=== PATIENT | male | born 1955 | race Caucasian/White ===

== ENCOUNTER 2018-09-25 20:06 | Inpatient (IN) | payer BC ==
[2018-09-25 21:19] LABS: ADD MAN DIFF? NO
[2018-09-25] MEDS: hydrALAzine 20 MG INJ IV (21:20)
[2018-09-25 21:21] LABS: ABNORMAL IP MESSAGE 1; BASOPHIL # 0.1 10^3/ul (0.0-0.1); BASOPHILS % 1.6 % (0.0-2.0); EOSINOPHILS # 0.1 10^3/ul (0.0-0.5); EOSINOPHILS % 1.6 % (0.0-7.0); HEMATOCRIT 49.9 % (42.0-52.0); HEMOGLOBIN 15.6 g/dl (14.0-18.0); MEAN CORPUSCULAR HEMOGLOBIN 24.7 pg (29.0-33.0); MEAN CORPUSCULAR HGB CONC 31.3 g/dl (32.0-37.0); MEAN PLATELET VOLUME 11.7 fl (7.4-10.4); MONOCYTE # 0.6 10^3/ul (0.3-0.9); MONOCYTES % 8.8 % (0.0-11.0); NEUTROPHILS % 72.7 % (39.0-77.0); PLATELET COUNT 222 10^3/UL (140-415); POSITIVE DIFF @See below; RED BLOOD COUNT 6.32 10^6/ul (4.70-6.10); RED CELL DISTRIBUTION WIDTH 16.6 % (11.5-14.5)
[2018-09-25 21:21] LABS: WHITE BLOOD COUNT 6.9 10^3/ul (4.8-10.8)
[2018-09-25 21:40] LABS: INR 0.91; PROTIME 12.4 Sec (11.9-14.9)
[2018-09-25 21:41] LABS: PARTIAL THROMBOPLASTIN TIME 30.9 Sec (23.0-35.0)
[2018-09-25 21:44] LABS: ALANINE AMINOTRANSFERASE 193 IU/L (13-69); ALBUMIN 2.7 g/dl (3.3-4.9); ALBUMIN/GLOBULIN RATIO 0.75; ALKALINE PHOSPHATASE 922 IU/L (42-121); ANION GAP 4 (5-13); ASPARTATE AMINO TRANSFERASE 248 IU/L (15-46); BILIRUBIN,INDIRECT 0.6 mg/dl (0-1.1); BILIRUBIN,TOTAL 0.7 mg/dl (0.2-1.3); BLOOD UREA NITROGEN 17 mg/dl (7-20); CALCIUM 8.9 mg/dl (8.4-10.2); CARBON DIOXIDE 29 mmol/L (21-31); CHLORIDE 101 mmol/L (97-110); Estimated GFR > 60 mL/min (>60); GLUCOSE 238 mg/dl (70-220); POTASSIUM 4.4 mmol/L (3.5-5.1); SODIUM 134 mmol/L (135-144); TOTAL PROTEIN 6.3 g/dl (6.1-8.1)
[2018-09-25 21:55] LABS: B-TYPE NATRIURETIC PEPTIDE 1800 PG/ML (0-125); TROPONIN-I < 0.012 ng/ml (0.000-0.120)
[2018-09-26] MEDS ORDERED: BISACODYL (EC) 5 MG TAB PO (01:00)
[2018-09-26] MEDS ORDERED: DOCUSATE SODIUM 100 MG CAP PO (01:00)
[2018-09-26] MEDS ORDERED: ONDANSETRON 4 MG INJ IV ×2 (01:00)
[2018-09-26] MEDS ORDERED: NACL 0.9% 3 ML SYG IV (01:00)
[2018-09-26] MEDS ORDERED: hydrALAzine 20 MG INJ IV (01:00)
[2018-09-26] MEDS: ONDANSETRON 4 MG INJ IV ×2 (01:15→13:27)
[2018-09-26 02:55] LABS: AMMONIA 55 umol/l (9-30)
[2018-09-26] MEDS: hydrALAzine 20 MG INJ IV ×2 (05:17→18:52)
[2018-09-26] MEDS: ACETAMINOPHEN 325 MG TAB PO ×2 (05:18→18:21)
[2018-09-26] MEDS: PANTOPRAZOLE 40 MG INJ IV (05:24)
[2018-09-26] MEDS: BENAZEPRIL 40 MG TAB PO (05:24)
[2018-09-26] MEDS: SOD CHLORIDE 0.9% 1,000 ML IV ×3 (05:28→22:30)
[2018-09-26 05:58] LABS: ADD MAN DIFF? NO; HAAIG REFLEX REFLEX FILED
[2018-09-26] MEDS ORDERED: GLUCOSE GEL 15 GRAM TUBE PO ×2 (06:30)
[2018-09-26] MEDS ORDERED: GLUCAGON 1 MG INJ IM (06:30)
[2018-09-26] MEDS ORDERED: DEXTROSE 50% 50 ML SYRINGE IV (06:30)
[2018-09-26 06:35] LABS: WHITE BLOOD COUNT 8.3 10^3/ul (4.8-10.8)
[2018-09-26 06:35] LABS: BASOPHIL # 0.2 10^3/ul (0.0-0.1); BASOPHILS % 1.8 % (0.0-2.0); EOSINOPHILS # 0.1 10^3/ul (0.0-0.5); EOSINOPHILS % 1.2 % (0.0-7.0); HEMATOCRIT 54.3 % (42.0-52.0); HEMOGLOBIN 16.8 g/dl (14.0-18.0); LYMPHOCYTES # 1.2 10^3/ul (0.8-2.9); LYMPHOCYTES % 14.4 % (15.0-51.0); MEAN CORPUSCULAR HEMOGLOBIN 24.8 pg (29.0-33.0); MEAN CORPUSCULAR HGB CONC 30.9 g/dl (32.0-37.0); MEAN CORPUSCULAR VOLUME 80.2 fl (82.0-101.0); MEAN PLATELET VOLUME 12.6 fl (7.4-10.4); MONOCYTE # 0.8 10^3/ul (0.3-0.9); MONOCYTES % 9.9 % (0.0-11.0); NEUTROPHIL # 5.9 10^3/ul (1.6-7.5); NEUTROPHILS % 71.5 % (39.0-77.0); PLATELET COUNT 233 10^3/UL (140-415); RED BLOOD COUNT 6.77 10^6/ul (4.70-6.10); RED CELL DISTRIBUTION WIDTH 18.1 % (11.5-14.5)
[2018-09-26] MEDS: DEXTROSE 5%-0.45% NACL 1,000 ML IV (06:57)
[2018-09-26 07:04] LABS: ALANINE AMINOTRANSFERASE 182 IU/L (13-69); ALBUMIN 2.8 g/dl (3.3-4.9); ALBUMIN/GLOBULIN RATIO 0.75; ALKALINE PHOSPHATASE 812 IU/L (42-121); ANION GAP 9 (5-13); ASPARTATE AMINO TRANSFERASE 256 IU/L (15-46); BILIRUBIN,INDIRECT 0.7 mg/dl (0-1.1); BILIRUBIN,TOTAL 0.7 mg/dl (0.2-1.3); BLOOD UREA NITROGEN 16 mg/dl (7-20); CARBON DIOXIDE 29 mmol/L (21-31); CHLORIDE 100 mmol/L (97-110); CREATININE 0.94 mg/dl (0.61-1.24); Estimated GFR > 60 mL/min (>60); GLUCOSE 107 mg/dl (70-220); POTASSIUM 4.5 mmol/L (3.5-5.1); SODIUM 138 mmol/L (135-144); TOTAL PROTEIN 6.5 g/dl (6.1-8.1)
[2018-09-26 07:12] LABS: MAGNESIUM 1.6 mg/dl (1.7-2.5)
[2018-09-26 07:12] LABS: CHOL/HDL RATIO 10.4 RATIO; CHOLESTEROL 272 mg/dl (100-200); HDL CHOLESTEROL 26 mg/dl (30-78); LDL CHOLESTEROL,CALCULATED 184 mg/dl; TRIGLYCERIDES 308 mg/dl (0-149)
[2018-09-26 07:18] LABS: HEMOGLOBIN A1C 11.5 % (0-5.9)
[2018-09-26 07:19] LABS: HEPATITIS B SURFACE ANTIGEN NEGATIVE (NEGATIVE)
[2018-09-26 07:36] LABS: HEPATITIS B CORE ANTIBODY REACTIVE (NEGATIVE)
[2018-09-26 07:37] LABS: HEPATITIS B SURFACE ANTIBODY NEGATIVE (NEGATIVE)
[2018-09-26 07:39] LABS: HEPATITIS C VIRAL ANTIBODY REACTIVE (NEGATIVE)
[2018-09-26] MEDS: AMLODIPINE 2.5 MG TAB PO (08:42)
[2018-09-26] MEDS: INSULIN ASPART [NOVOLOG] 3 ML PEN SC (08:43)
[2018-09-26 09:59] LABS: LIPASE 68 U/L (23-300)
[2018-09-26] MEDS: LACTULOSE 30ML CUP PO ×2 (10:24→20:47)
[2018-09-26 11:04] LABS: ADD UMIC YES; UR ASCORBIC ACID NEGATIVE (NEGATIVE); UR BILIRUBIN (Dip) NEGATIVE (NEGATIVE); UR BLOOD (Dip) NEGATIVE (NEGATIVE); UR CLARITY CLEAR (CLEAR); UR COLOR AMBER (YELLOW); UR GLUCOSE (Dip) 1+ mg/dL (NEGATIVE); UR HYALINE CAST FEW /HPF (NONE SEEN); UR KETONES (Dip) NEGATIVE (NEGATIVE); UR LEUKOCYTE ESTERASE (Dip) 1+ Leu/ul (NEGATIVE); UR NITRITE (Dip) NEGATIVE (NEGATIVE); UR NONSQUAMOUS EPITHELIAL CELL 1 /HPF (NONE SEEN); UR RBC 1 /HPF (0-5); UR SPECIFIC GRAVITY (Dip) 1.012 (1.003-1.030); UR TOTAL PROTEIN (Dip) 3+ mg/dl (NEGATIVE); UR UROBILINOGEN (Dip) 1+ mg/dL (NEGATIVE); UR WBC 13 /HPF (0-5)
[2018-09-26] MEDS ORDERED: INSULIN ASPART [NOVOLOG] 3 ML PEN SC (11:30)
[2018-09-26 11:42] LABS: AMPHETAMINE/METHAMPHETAMINE Negative (NEGATIVE); BARBITURATES Negative (NEGATIVE); BENZODIAZEPINES Negative (NEGATIVE); CANNABINOIDS Negative (NEGATIVE); COCAINE Negative (NEGATIVE); OPIATES Negative (NEGATIVE)
[2018-09-26] MEDS: MAGNESIUM SULFATE 2 GM/50 ML 50 ML IVPB (12:01)
[2018-09-26] MEDS: METOCLOPRAMIDE 10 MG INJ IV ×2 (12:01→18:02)
[2018-09-26] MEDS: Insulin NOVOLOG SS MILD Algorithm (SS with meals and bedtime) SC ×3 (12:12→20:49)
[2018-09-26] MEDS: BARIUM SULF 2% 450 ML BTL (BERRY SMOOTHIE) PO (13:21)
[2018-09-26] MEDS: IOHEXOL 350MG/ML 50 ML BTL (14:36)
[2018-09-26] MEDS: IOHEXOL 100 ML (14:36)
[2018-09-26] MEDS: SOD CHLORIDE 0.9% 100 ML (14:37)
[2018-09-26] MEDS: INSULIN GLARGINE [LANTus] (100 UNITS/ML) SYG SC (20:46)
[2018-09-26] MEDS: ATORVASTATIN 20 MG TAB PO (20:47)
[2018-09-27] MEDS: METOCLOPRAMIDE 10 MG INJ IV
[2018-09-27 05:13] LABS: ADD MAN DIFF? NO
[2018-09-27 05:17] LABS: BASOPHIL # 0.1 10^3/ul (0.0-0.1); BASOPHILS % 1.5 % (0.0-2.0); EOSINOPHILS # 0.1 10^3/ul (0.0-0.5); EOSINOPHILS % 1.1 % (0.0-7.0); HEMATOCRIT 50.1 % (42.0-52.0); HEMOGLOBIN 15.6 g/dl (14.0-18.0); LYMPHOCYTES % 13.6 % (15.0-51.0); MEAN CORPUSCULAR HEMOGLOBIN 24.4 pg (29.0-33.0); MEAN CORPUSCULAR HGB CONC 31.1 g/dl (32.0-37.0); MEAN CORPUSCULAR VOLUME 78.3 fl (82.0-101.0); MONOCYTE # 0.9 10^3/ul (0.3-0.9); MONOCYTES % 11.4 % (0.0-11.0); NEUTROPHIL # 5.4 10^3/ul (1.6-7.5); NEUTROPHILS % 71.3 % (39.0-77.0); PLATELET COUNT 285 10^3/UL (140-415); RED CELL DISTRIBUTION WIDTH 17.5 % (11.5-14.5)
[2018-09-27 05:17] LABS: WHITE BLOOD COUNT 7.6 10^3/ul (4.8-10.8)
[2018-09-27] MEDS: PANTOPRAZOLE 40 MG INJ IV (05:27)
[2018-09-27 05:36] LABS: ALANINE AMINOTRANSFERASE 170 IU/L (13-69); ALBUMIN 2.6 g/dl (3.3-4.9); ALBUMIN/GLOBULIN RATIO 0.74; ALKALINE PHOSPHATASE 666 IU/L (42-121); ANION GAP 7 (5-13); ASPARTATE AMINO TRANSFERASE 239 IU/L (15-46); BILIRUBIN,INDIRECT 0.5 mg/dl (0-1.1); BILIRUBIN,TOTAL 0.6 mg/dl (0.2-1.3); BLOOD UREA NITROGEN 20 mg/dl (7-20); CALCIUM 8.6 mg/dl (8.4-10.2); CARBON DIOXIDE 27 mmol/L (21-31); CHLORIDE 103 mmol/L (97-110); CREATININE 1.28 mg/dl (0.61-1.24); Estimated GFR 57 mL/min (>60); GLUCOSE 68 mg/dl (70-220); POTASSIUM 4.2 mmol/L (3.5-5.1); SODIUM 137 mmol/L (135-144); TOTAL PROTEIN 6.1 g/dl (6.1-8.1)
[2018-09-27] MEDS ORDERED: PROPOFOL 200 MG INJ (07:00)
[2018-09-27] MEDS: Insulin NOVOLOG SS MILD Algorithm (SS with meals and bedtime) SC ×4 (07:20→20:20)
[2018-09-27] MEDS: LACTULOSE 30ML CUP PO ×2 (09:00→20:22)
[2018-09-27] MEDS: DEXTROSE 50% 50 ML SYRINGE IV (09:31)
[2018-09-27] MEDS: BENAZEPRIL 40 MG TAB PO (09:44)
[2018-09-27] MEDS: AMLODIPINE 2.5 MG TAB PO (09:45)
[2018-09-27] MEDS: SOD CHLORIDE 0.9% 1,000 ML IV ×2 (11:00→16:29)
[2018-09-27] MEDS: METOPROLOL 25 MG TAB PO ×2 (11:30→20:20)
[2018-09-27] MEDS: DEXTROSE 5%-0.45% NACL 1,000 ML IV (12:19)
[2018-09-27] MEDS: hydrALAzine 20 MG INJ IV ×2 (12:52→15:26)
[2018-09-27] MEDS: PROPOFOL 40 ML (14:27)
[2018-09-27] MEDS: LIDOCAINE 2% (SDV) 5 ML INJ (14:27)
[2018-09-27] MEDS ORDERED: FENTAnyl 50 MCG/ML VIAL IV (14:30)
[2018-09-27] MEDS ORDERED: ACETAMINOPHEN 500 MG TAB PO (14:30)
[2018-09-27] MEDS ORDERED: ALBUTEROL 0.083% (NEB) 2.5 MG/3 ML AMP HHN (14:30)
[2018-09-27] MEDS ORDERED: DIPHENHYDRAMINE 50 MG INJ IV (14:30)
[2018-09-27] MEDS ORDERED: ONDANSETRON 4 MG INJ IV (14:30)
[2018-09-27] MEDS ORDERED: LABETALOL HCL 20MG INJ IV (14:30)
[2018-09-27] MEDS: ONDANSETRON 4 MG INJ IV (15:26)
[2018-09-27] MEDS: GLUCOSE GEL 15 GRAM TUBE BUCCAL (15:39)
[2018-09-27] MEDS: AMLODIPINE 5 MG TAB PO (16:28)
[2018-09-27 17:46] LABS: SODIUM,URINE RANDOM 68 mmol/L (30-90)
[2018-09-27 17:46] LABS: CREATININE,URINE RANDOM 127.07 mg/dl (20-370)
[2018-09-27 17:50] LABS: CREATININE,URINE RANDOM 129.25 mg/dl (20-370)
[2018-09-27 17:54] LABS: PROTEIN/CREAT RATIO 2.56 RATIO
[2018-09-27] MEDS: ACETAMINOPHEN 325 MG TAB PO (18:46)
[2018-09-27] MEDS: ATORVASTATIN 20 MG TAB PO (20:20)
[2018-09-27] MEDS: INSULIN GLARGINE [LANTus] (100 UNITS/ML) SYG SC (20:28)
[2018-09-28] MEDS: SOD CHLORIDE 0.9% 1,000 ML IV (01:20)
[2018-09-28] MEDS: hydrALAzine 20 MG INJ IV ×3 (02:58→23:52)
[2018-09-28 05:11] LABS: ADD MAN DIFF? NO
[2018-09-28 05:30] LABS: BASOPHIL # 0.1 10^3/ul (0.0-0.1); BASOPHILS % 1.2 % (0.0-2.0); EOSINOPHILS # 0.1 10^3/ul (0.0-0.5); EOSINOPHILS % 1.4 % (0.0-7.0); HEMATOCRIT 48.5 % (42.0-52.0); HEMOGLOBIN 14.9 g/dl (14.0-18.0); LYMPHOCYTES # 0.7 10^3/ul (0.8-2.9); LYMPHOCYTES % 12.6 % (15.0-51.0); MEAN CORPUSCULAR HEMOGLOBIN 24.3 pg (29.0-33.0); MEAN CORPUSCULAR HGB CONC 30.7 g/dl (32.0-37.0); MEAN PLATELET VOLUME 11.5 fl (7.4-10.4); MONOCYTE # 0.9 10^3/ul (0.3-0.9); MONOCYTES % 15.3 % (0.0-11.0); NEUTROPHIL # 4.1 10^3/ul (1.6-7.5); PLATELET COUNT 270 10^3/UL (140-415); RED BLOOD COUNT 6.14 10^6/ul (4.70-6.10); RED CELL DISTRIBUTION WIDTH 17.3 % (11.5-14.5)
[2018-09-28 05:30] LABS: WHITE BLOOD COUNT 5.9 10^3/ul (4.8-10.8)
[2018-09-28 05:49] LABS: ALANINE AMINOTRANSFERASE 170 IU/L (13-69); ALBUMIN 2.3 g/dl (3.3-4.9); ALBUMIN/GLOBULIN RATIO 0.71; ALKALINE PHOSPHATASE 536 IU/L (42-121); ANION GAP 8 (5-13); ASPARTATE AMINO TRANSFERASE 277 IU/L (15-46); BILIRUBIN,INDIRECT 0.6 mg/dl (0-1.1); BILIRUBIN,TOTAL 0.9 mg/dl (0.2-1.3); BLOOD UREA NITROGEN 23 mg/dl (7-20); CALCIUM 8.5 mg/dl (8.4-10.2); CARBON DIOXIDE 25 mmol/L (21-31); CHLORIDE 105 mmol/L (97-110); CREATININE 1.16 mg/dl (0.61-1.24); Estimated GFR > 60 mL/min (>60); POTASSIUM 4.4 mmol/L (3.5-5.1); SODIUM 138 mmol/L (135-144); TOTAL PROTEIN 5.5 g/dl (6.1-8.1)
[2018-09-28 06:04] LABS: AMMONIA 50 umol/l (9-30)
[2018-09-28] MEDS: PANTOPRAZOLE 40 MG INJ IV (06:39)
[2018-09-28] MEDS: AMLODIPINE 10 MG TAB PO (08:21)
[2018-09-28] MEDS: METOPROLOL 25 MG TAB PO ×2 (08:21→20:13)
[2018-09-28] MEDS: LACTULOSE 30ML CUP PO ×3 (08:22→20:05)
[2018-09-28] MEDS: Insulin NOVOLOG SS MILD Algorithm (SS with meals and bedtime) SC ×4 (08:37→20:05)
[2018-09-28] MEDS: SOD CHLORIDE 0.9% 100 ML (13:42)
[2018-09-28] MEDS: IODIXANOL LOCM 100 ML BTL (13:43)
[2018-09-28] MEDS: ONDANSETRON 4 MG INJ IV ×2 (17:43→23:39)
[2018-09-28] MEDS: ATORVASTATIN 20 MG TAB PO (20:16)
[2018-09-28] MEDS: NIFEdipine (XL) 30 MG TAB PO (20:18)
[2018-09-29] MEDS: ACETAMINOPHEN 325 MG TAB PO ×2 (03:15→09:54)
[2018-09-29 05:24] LABS: ADD MAN DIFF? NO
[2018-09-29 05:32] LABS: WHITE BLOOD COUNT 19.6 10^3/ul (4.8-10.8)
[2018-09-29 05:32] LABS: ABNORMAL IP MESSAGE 1; BASOPHILS % 0.2 % (0.0-2.0); HEMATOCRIT 47.6 % (42.0-52.0); HEMOGLOBIN 15.1 g/dl (14.0-18.0); LYMPHOCYTES # 0.3 10^3/ul (0.8-2.9); LYMPHOCYTES % 1.7 % (15.0-51.0); MEAN CORPUSCULAR HEMOGLOBIN 24.5 pg (29.0-33.0); MEAN CORPUSCULAR HGB CONC 31.7 g/dl (32.0-37.0); MEAN CORPUSCULAR VOLUME 77.3 fl (82.0-101.0); MEAN PLATELET VOLUME 12.3 fl (7.4-10.4); MONOCYTE # 1.3 10^3/ul (0.3-0.9); MONOCYTES % 6.5 % (0.0-11.0); NEUTROPHIL # 17.8 10^3/ul (1.6-7.5); PLATELET COUNT 286 10^3/UL (140-415); POSITIVE DIFF @See below; RED BLOOD COUNT 6.16 10^6/ul (4.70-6.10); RED CELL DISTRIBUTION WIDTH 17.6 % (11.5-14.5)
[2018-09-29 05:54] LABS: ALANINE AMINOTRANSFERASE 153 IU/L (13-69); ALBUMIN 2.5 g/dl (3.3-4.9); ALBUMIN/GLOBULIN RATIO 0.73; ALKALINE PHOSPHATASE 518 IU/L (42-121); ANION GAP 15 (5-13); ASPARTATE AMINO TRANSFERASE 228 IU/L (15-46); BILIRUBIN,INDIRECT 0.7 mg/dl (0-1.1); BILIRUBIN,TOTAL 0.9 mg/dl (0.2-1.3); BLOOD UREA NITROGEN 27 mg/dl (7-20); CALCIUM 8.6 mg/dl (8.4-10.2); CARBON DIOXIDE 21 mmol/L (21-31); CHLORIDE 102 mmol/L (97-110); CREATININE 1.41 mg/dl (0.61-1.24); Estimated GFR 51 mL/min (>60); GLUCOSE 127 mg/dl (70-220); POTASSIUM 4.1 mmol/L (3.5-5.1); SODIUM 138 mmol/L (135-144); TOTAL PROTEIN 5.9 g/dl (6.1-8.1)
[2018-09-29 06:56] LABS: GLUCOSE 50 mg/dl (70-220)
[2018-09-29] MEDS: METOPROLOL 25 MG TAB PO (08:53)
[2018-09-29] MEDS: FAMOTIDINE 20 MG INJ IV (08:53)
[2018-09-29] MEDS: NIFEdipine (XL) 30 MG TAB PO (08:54)
[2018-09-29] MEDS: Insulin NOVOLOG SS MILD Algorithm (SS with meals and bedtime) SC ×3 (08:58→18:12)
[2018-09-29] MEDS: LACTULOSE 30ML CUP PO (09:17)
[2018-09-29 10:49] LABS: INR 0.98; PROTIME 13.1 Sec (11.9-14.9)
[2018-09-29] MEDS: ERTAPENEM SODIUM 1 GM in SOD CHLORIDE 0.9% 100 ML IVPB (13:21)
== END 2018-09-29 19:15 | disposition short-term general hospital (02) | DRG 304 ==
LOC: E/R 20:06 → 6WM 09-26 00:43 → MS1 09-26 13:09
PROC: 0DB58ZX Excision of Esophagus, Via Natural or Artificial Opening Endoscopic, Diagnostic (ICD-10-PCS; principal; 2018-09-27 13:50)
DX: I16.0 Hypertensive urgency (principal); N17.0 Acute kidney failure with tubular necrosis; I81 Portal vein thrombosis; E72.20 Disorder of urea cycle metabolism, unspecified; R18.8 Other ascites; K76.6 Portal hypertension; C22.0 Liver cell carcinoma; I10 Essential (primary) hypertension; E78.5 Hyperlipidemia, unspecified; E11.8 Type 2 diabetes mellitus with unspecified complications; K74.60 Unspecified cirrhosis of liver; E83.42 Hypomagnesemia; B19.20 Unspecified viral hepatitis C without hepatic coma; R16.0 Hepatomegaly, not elsewhere classified; K76.0 Fatty (change of) liver, not elsewhere classified; K20.9 Esophagitis, unspecified; K29.70 Gastritis, unspecified, without bleeding; N99.0 Postprocedural (acute) (chronic) kidney failure; R51 Headache; K20.8 Other esophagitis; K74.69 Other cirrhosis of liver
CPT/HCPCS: 36415; 70450; 71045; 71260; 74176; 74177; 74181; 76705; 80053; 80061; 80307; 81001; 81003; 82105; 82140; 82570; 82962; 83036; 83690; 83735; 83880; 84155; 84300; 84443; 84484; 85025; 85610; 85730; 86704; 86706; 86708; 86709; 86803; 87086; 87340; 88305; 88312; 88313; 89190; 93005; 93306; 96374; 99285-25

== ENCOUNTER 2018-10-06 12:28 | Inpatient (IN) | payer BC ==
[2018-10-06 15:08] LABS: ADD MAN DIFF? NO
[2018-10-06] MEDS: FUROSEMIDE 40 MG INJ IV (15:09)
[2018-10-06 15:10] LABS: WHITE BLOOD COUNT 6.8 10^3/ul (4.8-10.8)
[2018-10-06 15:10] LABS: BASOPHIL # 0.2 10^3/ul (0.0-0.1); BASOPHILS % 2.4 % (0.0-2.0); EOSINOPHILS # 0.2 10^3/ul (0.0-0.5); EOSINOPHILS % 2.7 % (0.0-7.0); HEMATOCRIT 45.4 % (42.0-52.0); HEMOGLOBIN 14.1 g/dl (14.0-18.0); LYMPHOCYTES # 0.9 10^3/ul (0.8-2.9); LYMPHOCYTES % 13.4 % (15.0-51.0); MEAN CORPUSCULAR HGB CONC 31.1 g/dl (32.0-37.0); MEAN CORPUSCULAR VOLUME 77.3 fl (82.0-101.0); MEAN PLATELET VOLUME 10.6 fl (7.4-10.4); MONOCYTE # 0.8 10^3/ul (0.3-0.9); MONOCYTES % 11.5 % (0.0-11.0); NEUTROPHIL # 4.5 10^3/ul (1.6-7.5); NEUTROPHILS % 66.3 % (39.0-77.0); PLATELET COUNT 275 10^3/UL (140-415); RED BLOOD COUNT 5.87 10^6/ul (4.70-6.10); RED CELL DISTRIBUTION WIDTH 17.5 % (11.5-14.5)
[2018-10-06 15:27] LABS: ALANINE AMINOTRANSFERASE 233 IU/L (13-69); ALBUMIN 2.5 g/dl (3.3-4.9); ALBUMIN/GLOBULIN RATIO 0.69; ALKALINE PHOSPHATASE 1323 IU/L (42-121); ANION GAP 3 (5-13); ASPARTATE AMINO TRANSFERASE 416 IU/L (15-46); BILIRUBIN,INDIRECT 0.6 mg/dl (0-1.1); BILIRUBIN,TOTAL 0.6 mg/dl (0.2-1.3); BLOOD UREA NITROGEN 18 mg/dl (7-20); CALCIUM 8.5 mg/dl (8.4-10.2); CARBON DIOXIDE 26 mmol/L (21-31); CHLORIDE 107 mmol/L (97-110); Estimated GFR > 60 mL/min (>60); GLUCOSE 242 mg/dl (70-220); POTASSIUM 4.9 mmol/L (3.5-5.1); SODIUM 136 mmol/L (135-144); TOTAL PROTEIN 6.1 g/dl (6.1-8.1)
[2018-10-06 15:31] LABS: PROTIME 13.3 Sec (11.9-14.9)
[2018-10-06 15:32] LABS: PARTIAL THROMBOPLASTIN TIME 33.3 Sec (23.0-35.0)
[2018-10-06 15:39] LABS: TROPONIN-I < 0.012 ng/ml (0.000-0.120)
[2018-10-06] MEDS ORDERED: ONDANSETRON 4 MG INJ IV (16:30)
[2018-10-06] MEDS ORDERED: ACETAMINOPHEN 325 MG TAB PO ×2 (16:30→17:00)
[2018-10-06] MEDS ORDERED: NACL 0.9% 3 ML SYG IV (17:00)
[2018-10-06] MEDS: INSULIN ASPART [NOVOLOG] 3 ML PEN SC ×3 (18:00→20:44)
[2018-10-06] MEDS ORDERED: FUROSEMIDE 40 MG INJ IV (18:00)
[2018-10-06 18:11] LABS: B-TYPE NATRIURETIC PEPTIDE 1220 PG/ML (0-125)
[2018-10-06] MEDS: PANTOPRAZOLE (EC) 40 MG TAB PO (20:04)
[2018-10-06] MEDS: AMOXICILLIN 500 MG CAP PO (20:04)
[2018-10-06] MEDS: INSULIN GLARGINE [LANTus] (100 UNITS/ML) SYG SC (20:43)
[2018-10-06] MEDS: PROPRANOLOL 40 MG TAB PO (21:00)
[2018-10-06] MEDS: hydrALAzine 20 MG INJ IV (21:39)
[2018-10-06 21:45] LABS: CREATINE KINASE 45 IU/L (23-200)
[2018-10-06 21:56] LABS: CK INDEX 1.2; CK-MB 0.55 ng/ml (0.0-2.4); TROPONIN-I < 0.012 ng/ml (0.000-0.120)
[2018-10-06] MEDS: CLARITHROMYCIN 500 MG TAB PO (23:25)
[2018-10-07] MEDS: hydrALAzine 20 MG INJ IV (02:44)
[2018-10-07 03:33] LABS: CREATINE KINASE 38 IU/L (23-200)
[2018-10-07 03:46] LABS: CK-MB 0.39 ng/ml (0.0-2.4); TROPONIN-I < 0.012 ng/ml (0.000-0.120)
[2018-10-07] MEDS: PANTOPRAZOLE (EC) 40 MG TAB PO ×2 (06:05→18:17)
[2018-10-07] MEDS: INSULIN ASPART [NOVOLOG] 3 ML PEN SC ×7 (07:49→20:16)
[2018-10-07] MEDS: SPIRONOLACTONE 50 MG TAB PO (08:11)
[2018-10-07] MEDS: AMOXICILLIN 500 MG CAP PO ×2 (08:11→20:09)
[2018-10-07] MEDS: FUROSEMIDE 40 MG INJ IV (08:11)
[2018-10-07] MEDS: CLARITHROMYCIN 500 MG TAB PO ×2 (09:44→20:09)
[2018-10-07] MEDS: PROPRANOLOL 40 MG TAB PO ×3 (09:44→20:09)
[2018-10-07 10:33] LABS: ADD MAN DIFF? NO
[2018-10-07 10:45] LABS: WHITE BLOOD COUNT 6.7 10^3/ul (4.8-10.8)
[2018-10-07 10:45] LABS: BASOPHIL # 0.2 10^3/ul (0.0-0.1); BASOPHILS % 2.2 % (0.0-2.0); EOSINOPHILS # 0.1 10^3/ul (0.0-0.5); EOSINOPHILS % 1.5 % (0.0-7.0); HEMATOCRIT 43.1 % (42.0-52.0); HEMOGLOBIN 13.7 g/dl (14.0-18.0); LYMPHOCYTES # 0.6 10^3/ul (0.8-2.9); LYMPHOCYTES % 9.4 % (15.0-51.0); MEAN CORPUSCULAR HGB CONC 31.8 g/dl (32.0-37.0); MEAN CORPUSCULAR VOLUME 75.6 fl (82.0-101.0); MEAN PLATELET VOLUME 10.6 fl (7.4-10.4); MONOCYTE # 0.6 10^3/ul (0.3-0.9); MONOCYTES % 9.1 % (0.0-11.0); NEUTROPHILS % 74.5 % (39.0-77.0); PLATELET COUNT 268 10^3/UL (140-415); RED CELL DISTRIBUTION WIDTH 17.7 % (11.5-14.5)
[2018-10-07 10:51] LABS: ALANINE AMINOTRANSFERASE 219 IU/L (13-69); ALBUMIN 2.4 g/dl (3.3-4.9); ALBUMIN/GLOBULIN RATIO 0.68; ALKALINE PHOSPHATASE 1034 IU/L (42-121); ANION GAP 5 (5-13); ASPARTATE AMINO TRANSFERASE 416 IU/L (15-46); BILIRUBIN,INDIRECT 0.5 mg/dl (0-1.1); BILIRUBIN,TOTAL 0.9 mg/dl (0.2-1.3); BLOOD UREA NITROGEN 20 mg/dl (7-20); CALCIUM 8.5 mg/dl (8.4-10.2); CARBON DIOXIDE 28 mmol/L (21-31); CHLORIDE 102 mmol/L (97-110); CREATININE 1.14 mg/dl (0.61-1.24); Estimated GFR > 60 mL/min (>60); GLUCOSE 206 mg/dl (70-220); MAGNESIUM 1.6 mg/dl (1.7-2.5); POTASSIUM 4.6 mmol/L (3.5-5.1); SODIUM 135 mmol/L (135-144); TOTAL PROTEIN 5.9 g/dl (6.1-8.1)
[2018-10-07] MEDS ORDERED: GLUCOSE GEL 15 GRAM TUBE BUCCAL (16:30)
[2018-10-07] MEDS ORDERED: GLUCOSE GEL 15 GRAM TUBE PO ×2 (16:30)
[2018-10-07] MEDS ORDERED: GLUCAGON 1 MG INJ IM (16:30)
[2018-10-07] MEDS ORDERED: DEXTROSE 50% 50 ML SYRINGE IV ×2 (16:30)
[2018-10-07] MEDS: INSULIN GLARGINE [LANTus] (100 UNITS/ML) SYG SC (20:16)
[2018-10-08 05:48] LABS: ADD MAN DIFF? NO
[2018-10-08] MEDS: PANTOPRAZOLE (EC) 40 MG TAB PO (05:52)
[2018-10-08 05:54] LABS: WHITE BLOOD COUNT 7.7 10^3/ul (4.8-10.8)
[2018-10-08 05:54] LABS: BASOPHIL # 0.2 10^3/ul (0.0-0.1); BASOPHILS % 2.5 % (0.0-2.0); EOSINOPHILS # 0.2 10^3/ul (0.0-0.5); EOSINOPHILS % 3.1 % (0.0-7.0); HEMATOCRIT 45.5 % (42.0-52.0); HEMOGLOBIN 14.7 g/dl (14.0-18.0); LYMPHOCYTES # 1.2 10^3/ul (0.8-2.9); MEAN CORPUSCULAR HEMOGLOBIN 24.1 pg (29.0-33.0); MEAN CORPUSCULAR HGB CONC 32.3 g/dl (32.0-37.0); MEAN CORPUSCULAR VOLUME 74.6 fl (82.0-101.0); MEAN PLATELET VOLUME 10.9 fl (7.4-10.4); MONOCYTE # 0.7 10^3/ul (0.3-0.9); MONOCYTES % 8.7 % (0.0-11.0); NEUTROPHIL # 5.1 10^3/ul (1.6-7.5); NEUTROPHILS % 66.3 % (39.0-77.0); PLATELET COUNT 295 10^3/UL (140-415); RED CELL DISTRIBUTION WIDTH 18.2 % (11.5-14.5)
[2018-10-08 06:14] LABS: MAGNESIUM 1.7 mg/dl (1.7-2.5); PROTIME 13.3 Sec (11.9-14.9)
[2018-10-08 06:14] LABS: PHOSPHORUS 4.1 mg/dl (2.5-4.9)
[2018-10-08 06:15] LABS: PARTIAL THROMBOPLASTIN TIME 32.2 Sec (23.0-35.0)
[2018-10-08 06:22] LABS: ALANINE AMINOTRANSFERASE 238 IU/L (13-69); ALBUMIN 2.6 g/dl (3.3-4.9); ALKALINE PHOSPHATASE 1164 IU/L (42-121); ANION GAP 6 (5-13); ASPARTATE AMINO TRANSFERASE 492 IU/L (15-46); BILIRUBIN,INDIRECT 0.7 mg/dl (0-1.1); BILIRUBIN,TOTAL 1.1 mg/dl (0.2-1.3); BLOOD UREA NITROGEN 22 mg/dl (7-20); CALCIUM 8.6 mg/dl (8.4-10.2); CARBON DIOXIDE 28 mmol/L (21-31); CHLORIDE 103 mmol/L (97-110); CREATININE 1.31 mg/dl (0.61-1.24); Estimated GFR 55 mL/min (>60); GLUCOSE 97 mg/dl (70-220); POTASSIUM 4.5 mmol/L (3.5-5.1); SODIUM 137 mmol/L (135-144); TOTAL PROTEIN 6.3 g/dl (6.1-8.1)
[2018-10-08] MEDS: INSULIN ASPART [NOVOLOG] 3 ML PEN SC ×4 (08:00→11:21)
[2018-10-08] MEDS: AMOXICILLIN 500 MG CAP PO (08:07)
[2018-10-08] MEDS: CLARITHROMYCIN 500 MG TAB PO (08:07)
[2018-10-08] MEDS: SPIRONOLACTONE 50 MG TAB PO (08:08)
[2018-10-08] MEDS: FUROSEMIDE 40 MG INJ IV (08:08)
[2018-10-08] MEDS: PROPRANOLOL 40 MG TAB PO ×2 (08:08→12:44)
[2018-10-08] MEDS: traMADol 50 MG TAB PO (11:15)
[2018-10-08] MEDS: ONDANSETRON 4 MG INJ IV (11:53)
[2018-10-08] MEDS: hydrALAzine 20 MG INJ IV ×2 (12:45→12:47)
== END 2018-10-08 16:20 | disposition home or self-care (01) | DRG 292 ==
LOC: E/R 12:28 → 6WM 16:58
DX: I11.0 Hypertensive heart disease with heart failure (principal); K76.6 Portal hypertension; R18.8 Other ascites; C22.7 Other specified carcinomas of liver; I50.33 Acute on chronic diastolic (congestive) heart failure; I16.0 Hypertensive urgency; K74.60 Unspecified cirrhosis of liver; K20.9 Esophagitis, unspecified; E11.9 Type 2 diabetes mellitus without complications; R16.0 Hepatomegaly, not elsewhere classified
CPT/HCPCS: 36415; 71045; 80053; 82550; 82553; 82962; 83735; 83880; 84100; 84484; 85025; 85610; 85730; 87081; 93005; 93970; 96374; 99285-25

== ENCOUNTER 2018-11-29 13:26 | Inpatient (IN) | payer BC ==
[2018-11-29 13:55] LABS: ADD MAN DIFF? NO
[2018-11-29 13:59] LABS: ABNORMAL IP MESSAGE 1; BASOPHILS % 0.2 % (0.0-2.0); EOSINOPHILS # 0.1 10^3/ul (0.0-0.5); EOSINOPHILS % 0.3 % (0.0-7.0); HEMATOCRIT 55.7 % (42.0-52.0); HEMOGLOBIN 18.5 g/dl (14.0-18.0); LYMPHOCYTES # 2.2 10^3/ul (0.8-2.9); LYMPHOCYTES % 13.4 % (15.0-51.0); MEAN CORPUSCULAR HEMOGLOBIN 26.5 pg (29.0-33.0); MEAN CORPUSCULAR HGB CONC 33.2 g/dl (32.0-37.0); MEAN CORPUSCULAR VOLUME 79.9 fl (82.0-101.0); MONOCYTE # 0.4 10^3/ul (0.3-0.9); MONOCYTES % 2.4 % (0.0-11.0); NEUTROPHIL # 13.4 10^3/ul (1.6-7.5); NEUTROPHILS % 83.3 % (39.0-77.0); PLATELET COUNT 271 10^3/UL (140-415); POSITIVE DIFF @See below; RED BLOOD COUNT 6.97 10^6/ul (4.70-6.10); RED CELL DISTRIBUTION WIDTH 24.7 % (11.5-14.5)
[2018-11-29 13:59] LABS: WHITE BLOOD COUNT 16.1 10^3/ul (4.8-10.8)
[2018-11-29 14:15] LABS: AMMONIA 158 umol/l (9-30)
[2018-11-29 14:21] LABS: PROTIME 14.3 Sec (11.9-14.9); PT RATIO 1.1
[2018-11-29 14:22] LABS: PARTIAL THROMBOPLASTIN TIME 34.3 Sec (23.0-35.0)
[2018-11-29] MEDS: SODIUM CHLORIDE 0.9% 1L BAG IV* (14:29)
[2018-11-29 14:34] LABS: ALANINE AMINOTRANSFERASE 114 IU/L (13-69); ALBUMIN 3.7 g/dl (3.3-4.9); ALBUMIN/GLOBULIN RATIO 0.77; ALKALINE PHOSPHATASE 505 IU/L (42-121); ANION GAP 11 (5-13); ASPARTATE AMINO TRANSFERASE 105 IU/L (15-46); BILIRUBIN,INDIRECT 1.4 mg/dl (0-1.1); BILIRUBIN,TOTAL 1.4 mg/dl (0.2-1.3); BLOOD UREA NITROGEN 54 mg/dl (7-20); CALCIUM 9.8 mg/dl (8.4-10.2); CARBON DIOXIDE 26 mmol/L (21-31); CHLORIDE 100 mmol/L (97-110); CREATININE 1.45 mg/dl (0.61-1.24); Estimated GFR 49 mL/min (>60); POTASSIUM 5.6 mmol/L (3.5-5.1); SODIUM 137 mmol/L (135-144); TOTAL PROTEIN 8.5 g/dl (6.1-8.1)
[2018-11-29 14:36] LABS: ANISOCYTOSIS 1+ (0-0); BAND NEUTROPHILS #M 1.4 10^3/ul (0.0-0.6); BAND NEUTROPHILS % (M) 9 % (0-4); BASOPHIL #M 0.1 10^3/ul (0.0-0.0); BASOPHILS % (M) 1 % (0-2); LYMPHOCYTES #M 1.9 10^3/ul (0.8-2.9); LYMPHOCYTES % (M) 12 % (15-51); MICROCYTOSIS 1+ (0-0); MONOCYTE #M 0.3 10^3/ul (0.3-0.9); MONOCYTES % (M) 2 % (0-11); PLATELET ESTIMATE NORMAL; POIKILOCYTOSIS 1+ (0-0); RBC MORPHOLOGY COMMENT @See below; REACTIVE LYMPHOCYTES #M 0.1 10^3/ul (0.0-0.0); REACTIVE LYMPHOCYTES% (M) 1 % (0-0); SEG NEUT #M 12.3 10^3/ul (1.6-7.5); SEGMENTED NEUTROPHILS (M) % 75 % (39-77); SMUDGE%M 27 % (0-0); WBC MORPHOLOGY COMMENT @See below
[2018-11-29 14:37] LABS: ACETAMINOPHEN < 10.0 ug/ml (10.0-30.0)
[2018-11-29 14:40] LABS: GLUCOSE 509 mg/dl (70-220)
[2018-11-29] MEDS: CEFEPIME 2GM/50 ML (PMX) 50 ML IVPB (14:42)
[2018-11-29] MEDS: INSULIN ASPART [NOVOLOG] 3 ML PEN SC (15:10)
[2018-11-29] MEDS: ACCU-CHEK XX ×9 (15:10→23:05)
[2018-11-29] MEDS: VANCOMYCIN 1 GM (PMX) 250 ML IVPB (15:12)
[2018-11-29] MEDS: LACTULOSE ENEMA 1,000 ML BTL PR ×2 (15:27→20:25)
[2018-11-29 15:29] LABS: ADD UMIC YES; UR ASCORBIC ACID 20 mg/dL (NEGATIVE); UR BACTERIA FEW /HPF (NONE SEEN); UR BILIRUBIN (Dip) NEGATIVE (NEGATIVE); UR BLOOD (Dip) NEGATIVE (NEGATIVE); UR CLARITY SLIGHTLY CLOUDY (CLEAR); UR COLOR AMBER (YELLOW); UR GLUCOSE (Dip) 3+ mg/dL (NEGATIVE); UR HYALINE CAST FEW /HPF (NONE SEEN); UR KETONES (Dip) TRACE mg/dL (NEGATIVE); UR LEUKOCYTE ESTERASE (Dip) NEGATIVE Leu/ul (NEGATIVE); UR NITRITE (Dip) NEGATIVE (NEGATIVE); UR RBC 1 /HPF (0-5); UR SPECIFIC GRAVITY (Dip) 1.023 (1.003-1.030); UR TOTAL PROTEIN (Dip) 2+ mg/dl (NEGATIVE); UR UROBILINOGEN (Dip) NEGATIVE (NEGATIVE); UR WBC 2 /HPF (0-5)
[2018-11-29] MEDS ORDERED: NACL 0.9% 3 ML SYG IV (16:00)
[2018-11-29] MEDS ORDERED: INSULIN REGULAR, HUMAN 100 UNIT/1 ML 3ML VIAL IVP (16:02)
[2018-11-29] MEDS ORDERED: DEXTROSE 50% 50 ML SYRINGE IV ×2 (16:30)
[2018-11-29] MEDS ORDERED: VANCOMYCIN IV PER PHARMACY XX (16:30)
[2018-11-29 16:36] LABS: AMPHETAMINE/METHAMPHETAMINE NEGATIVE (NEGATIVE); BARBITURATES NEGATIVE (NEGATIVE); BENZODIAZEPINES NEGATIVE (NEGATIVE); CANNABINOIDS NEGATIVE (NEGATIVE); COCAINE NEGATIVE (NEGATIVE); OPIATES NEGATIVE (NEGATIVE)
[2018-11-29 16:46] LABS: LACTIC ACID 3.8 mmol/L (0.5-2.0)
[2018-11-29 16:56] LABS: HDL CHOLESTEROL 40 mg/dl (30-78); TRIGLYCERIDES 201 mg/dl (0-149)
[2018-11-29] MEDS: INSULIN HUMAN REGULAR 100 UNIT in SOD CHLORIDE 0.9% 99 ML IV (17:11)
[2018-11-29 17:15] LABS: CHOLESTEROL 434 mg/dl (100-200)
[2018-11-29 17:15] LABS: CHOL/HDL RATIO 10.8 RATIO; LDL CHOLESTEROL,CALCULATED 354 mg/dl
[2018-11-29 18:30] LABS: LACTIC ACID 3.1 mmol/L (0.5-2.0)
[2018-11-29] MEDS: hydrALAzine 20 MG INJ IV (18:54)
[2018-11-29 18:59] LABS: TROPONIN-I 0.018 ng/ml (0.000-0.120)
[2018-11-29 19:04] LABS: FREE THYROXINE INDEX (Calc) 4.19 ug/ml (0.65-3.89); T3 UPTAKE 36.4 % (23.5-40.5); T4 (THYROXINE) 11.5 ug/dl (5.5-11.0)
[2018-11-29 19:22] LABS: HEMOGLOBIN A1C 8.6 % (0-5.9)
[2018-11-29] MEDS: SOD CHLORIDE 0.9% 1,000 ML IV (20:02)
[2018-11-29] MEDS: PIPER-TAZO 3.375 GM IV (PMX) 100 ML IVPB (20:12)
[2018-11-29] MEDS: ONDANSETRON 4 MG INJ IV (21:16)
[2018-11-29] MEDS: morphine 2 MG INJ IV (21:17)
[2018-11-29 22:11] LABS: CREATININE,URINE RANDOM 129.86 mg/dl (20-370)
[2018-11-29 22:16] LABS: SODIUM,URINE RANDOM < 13 mmol/L (30-90)
[2018-11-29] MEDS: VANCOMYCIN 1 GM in 250 ML IVPB (23:30)
[2018-11-30] MEDS: ACCU-CHEK XX ×13 (00:03→13:03)
[2018-11-30] MEDS: LACTULOSE ENEMA 1,000 ML BTL PR ×2 (00:05→06:00)
[2018-11-30] MEDS: hydrALAzine 20 MG INJ IV ×3 (01:22→21:42)
[2018-11-30] MEDS: PIPER-TAZO 3.375 GM IV (PMX) 100 ML IVPB ×5 (01:35→23:27)
[2018-11-30] MEDS: morphine 2 MG INJ IV (03:18)
[2018-11-30] MEDS: SOD CHLORIDE 0.9% 1,000 ML IV (05:53)
[2018-11-30 07:21] LABS: WHITE BLOOD COUNT 9.8 10^3/ul (4.8-10.8)
[2018-11-30 07:21] LABS: ABNORMAL IP MESSAGE 1; ADD MAN DIFF? NO; BASOPHIL # 0.1 10^3/ul (0.0-0.1); BASOPHILS % 0.8 % (0.0-2.0); EOSINOPHILS # 0.3 10^3/ul (0.0-0.5); EOSINOPHILS % 2.9 % (0.0-7.0); HEMATOCRIT 50.9 % (42.0-52.0); HEMOGLOBIN 16.5 g/dl (14.0-18.0); LYMPHOCYTES # 2.3 10^3/ul (0.8-2.9); LYMPHOCYTES % 23.6 % (15.0-51.0); MEAN CORPUSCULAR HEMOGLOBIN 26.6 pg (29.0-33.0); MEAN CORPUSCULAR HGB CONC 32.4 g/dl (32.0-37.0); MEAN PLATELET VOLUME 11.3 fl (7.4-10.4); MONOCYTE # 0.7 10^3/ul (0.3-0.9); MONOCYTES % 7.5 % (0.0-11.0); NEUTROPHIL # 6.4 10^3/ul (1.6-7.5); NEUTROPHILS % 64.8 % (39.0-77.0); PLATELET COUNT 187 10^3/UL (140-415); POSITIVE DIFF @See below; RED BLOOD COUNT 6.21 10^6/ul (4.70-6.10); RED CELL DISTRIBUTION WIDTH 24.2 % (11.5-14.5)
[2018-11-30 07:38] LABS: LACTIC ACID 1.7 mmol/L (0.5-2.0)
[2018-11-30 07:38] LABS: AMMONIA 34 umol/l (9-30)
[2018-11-30 07:40] LABS: ALANINE AMINOTRANSFERASE 88 IU/L (13-69); ALBUMIN 2.7 g/dl (3.3-4.9); ALBUMIN/GLOBULIN RATIO 0.72; ALKALINE PHOSPHATASE 313 IU/L (42-121); ANION GAP 7 (5-13); ASPARTATE AMINO TRANSFERASE 82 IU/L (15-46); BILIRUBIN,INDIRECT 1.2 mg/dl (0-1.1); BILIRUBIN,TOTAL 1.2 mg/dl (0.2-1.3); BLOOD UREA NITROGEN 35 mg/dl (7-20); CALCIUM 9.1 mg/dl (8.4-10.2); CARBON DIOXIDE 26 mmol/L (21-31); CHLORIDE 112 mmol/L (97-110); CREATININE 1.08 mg/dl (0.61-1.24); Estimated GFR > 60 mL/min (>60); GLUCOSE 134 mg/dl (70-220); SODIUM 145 mmol/L (135-144); TOTAL PROTEIN 6.4 g/dl (6.1-8.1)
[2018-11-30 07:41] LABS: PHOSPHORUS 4.2 mg/dl (2.5-4.9)
[2018-11-30 07:41] LABS: INR 1.19; PROTIME 15.2 Sec (11.9-14.9); PT RATIO 1.2
[2018-11-30 07:42] LABS: PARTIAL THROMBOPLASTIN TIME 33.1 Sec (23.0-35.0)
[2018-11-30 09:46] LABS: PROCALCITONIN 0.14 ng/mL (0.00-0.10)
[2018-11-30] MEDS ORDERED: GLUCOSE GEL 15 GRAM TUBE BUCCAL (10:00)
[2018-11-30] MEDS ORDERED: GLUCAGON 1 MG INJ IM (10:00)
[2018-11-30] MEDS ORDERED: GLUCOSE GEL 15 GRAM TUBE PO ×2 (10:00)
[2018-11-30] MEDS ORDERED: DEXTROSE 50% 50 ML SYRINGE IV ×2 (10:00)
[2018-11-30] MEDS: SOD CHLORIDE 0.45% 1,000 ML IV (10:40)
[2018-11-30] MEDS: INSULIN GLARGINE [LANTus] (100 UNITS/ML) SYG SC (10:44)
[2018-11-30] MEDS: INSULIN ASPART [NOVOLOG] 3 ML PEN SC ×5 (11:30→21:15)
[2018-11-30] MEDS: RIFAXIMIN 550 MG TAB PO ×2 (13:01→22:10)
[2018-11-30] MEDS: PROPRANOLOL 40 MG TAB PO ×2 (13:01→22:11)
[2018-11-30] MEDS: VANCOMYCIN 1 GM in 250 ML IVPB (13:03)
[2018-11-30] MEDS: LACTULOSE 30ML CUP PO ×2 (15:07→21:41)
[2018-11-30] MEDS: BALSAM PERU/CASTOR OIL 60 GM TUBE TOP (20:49)
[2018-12-01] MEDS: VANCOMYCIN 1 GM in 250 ML IVPB (00:09)
[2018-12-01] MEDS: PIPER-TAZO 3.375 GM IV (PMX) 100 ML IVPB (05:39)
[2018-12-01] MEDS: SOD CHLORIDE 0.45% 1,000 ML IV ×2 (05:39→21:32)
[2018-12-01] MEDS: LACTULOSE 30ML CUP PO ×3 (05:39→21:31)
[2018-12-01] MEDS: hydrALAzine 20 MG INJ IV ×2 (05:40→20:12)
[2018-12-01 05:53] LABS: ADD MAN DIFF? NO
[2018-12-01 06:02] LABS: WHITE BLOOD COUNT 8.5 10^3/ul (4.8-10.8)
[2018-12-01 06:02] LABS: ABNORMAL IP MESSAGE 1; BASOPHIL # 0.1 10^3/ul (0.0-0.1); BASOPHILS % 1.2 % (0.0-2.0); EOSINOPHILS # 0.4 10^3/ul (0.0-0.5); EOSINOPHILS % 4.1 % (0.0-7.0); HEMOGLOBIN 15.4 g/dl (14.0-18.0); LYMPHOCYTES # 2.1 10^3/ul (0.8-2.9); LYMPHOCYTES % 25.1 % (15.0-51.0); MEAN CORPUSCULAR HEMOGLOBIN 26.8 pg (29.0-33.0); MEAN CORPUSCULAR HGB CONC 32.1 g/dl (32.0-37.0); MEAN CORPUSCULAR VOLUME 83.6 fl (82.0-101.0); MONOCYTE # 0.8 10^3/ul (0.3-0.9); NEUTROPHIL # 5.1 10^3/ul (1.6-7.5); NEUTROPHILS % 60.1 % (39.0-77.0); PLATELET COUNT 152 10^3/UL (140-415); POSITIVE DIFF @See below; RED BLOOD COUNT 5.74 10^6/ul (4.70-6.10); RED CELL DISTRIBUTION WIDTH 23.7 % (11.5-14.5)
[2018-12-01 06:27] LABS: MAGNESIUM 1.9 mg/dl (1.7-2.5)
[2018-12-01 06:27] LABS: PHOSPHORUS 3.1 mg/dl (2.5-4.9)
[2018-12-01 06:30] LABS: AMMONIA 54 umol/l (9-30)
[2018-12-01 06:36] LABS: ALANINE AMINOTRANSFERASE 85 IU/L (13-69); ALBUMIN 2.5 g/dl (3.3-4.9); ALBUMIN/GLOBULIN RATIO 0.69; ALKALINE PHOSPHATASE 285 IU/L (42-121); ANION GAP 4 (5-13); ASPARTATE AMINO TRANSFERASE 105 IU/L (15-46); BILIRUBIN,INDIRECT 1.2 mg/dl (0-1.1); BILIRUBIN,TOTAL 1.2 mg/dl (0.2-1.3); BLOOD UREA NITROGEN 29 mg/dl (7-20); CALCIUM 8.5 mg/dl (8.4-10.2); CARBON DIOXIDE 25 mmol/L (21-31); CHLORIDE 108 mmol/L (97-110); CREATININE 1.02 mg/dl (0.61-1.24); Estimated GFR > 60 mL/min (>60); GLUCOSE 206 mg/dl (70-220); POTASSIUM 4.1 mmol/L (3.5-5.1); SODIUM 137 mmol/L (135-144); TOTAL PROTEIN 6.1 g/dl (6.1-8.1)
[2018-12-01 06:51] LABS: PROCALCITONIN 0.13 ng/mL (0.00-0.10)
[2018-12-01] MEDS: INSULIN ASPART [NOVOLOG] 3 ML PEN SC ×7 (07:54→20:31)
[2018-12-01] MEDS: PROPRANOLOL 40 MG TAB PO ×4 (08:14→21:32)
[2018-12-01] MEDS: RIFAXIMIN 550 MG TAB PO ×2 (08:14→20:10)
[2018-12-01] MEDS: BALSAM PERU/CASTOR OIL 60 GM TUBE TOP ×2 (08:15→20:10)
[2018-12-01] MEDS: INSULIN GLARGINE [LANTus] (100 UNITS/ML) SYG SC (09:01)
[2018-12-01 16:56] LABS: CREATININE, RANDOM URINE 123 mg/dL (20-320); MICROALBUMIN/CREATININE RATIO 1472 (<30)
[2018-12-02] MEDS: hydrALAzine 20 MG INJ IV (04:28)
[2018-12-02 05:53] LABS: ADD MAN DIFF? NO
[2018-12-02] MEDS: LACTULOSE 30ML CUP PO ×2 (05:56→13:09)
[2018-12-02 06:00] LABS: ABNORMAL IP MESSAGE 1; BASOPHIL # 0.1 10^3/ul (0.0-0.1); BASOPHILS % 1.2 % (0.0-2.0); EOSINOPHILS # 0.3 10^3/ul (0.0-0.5); EOSINOPHILS % 3.4 % (0.0-7.0); HEMATOCRIT 49.3 % (42.0-52.0); HEMOGLOBIN 16.1 g/dl (14.0-18.0); LYMPHOCYTES # 2.1 10^3/ul (0.8-2.9); LYMPHOCYTES % 28.7 % (15.0-51.0); MEAN CORPUSCULAR HEMOGLOBIN 26.7 pg (29.0-33.0); MEAN CORPUSCULAR HGB CONC 32.7 g/dl (32.0-37.0); MEAN CORPUSCULAR VOLUME 81.8 fl (82.0-101.0); MONOCYTE # 0.7 10^3/ul (0.3-0.9); MONOCYTES % 9.7 % (0.0-11.0); NEUTROPHIL # 4.2 10^3/ul (1.6-7.5); NEUTROPHILS % 56.3 % (39.0-77.0); PLATELET COUNT 134 10^3/UL (140-415); POSITIVE DIFF @See below; RED BLOOD COUNT 6.03 10^6/ul (4.70-6.10); RED CELL DISTRIBUTION WIDTH 23.2 % (11.5-14.5)
[2018-12-02 06:00] LABS: WHITE BLOOD COUNT 7.4 10^3/ul (4.8-10.8)
[2018-12-02 06:13] LABS: ALANINE AMINOTRANSFERASE 97 IU/L (13-69); ALBUMIN 2.5 g/dl (3.3-4.9); ALBUMIN/GLOBULIN RATIO 0.65; ALKALINE PHOSPHATASE 398 IU/L (42-121); ANION GAP 4 (5-13); ASPARTATE AMINO TRANSFERASE 134 IU/L (15-46); BILIRUBIN,INDIRECT 1.1 mg/dl (0-1.1); BILIRUBIN,TOTAL 1.1 mg/dl (0.2-1.3); BLOOD UREA NITROGEN 19 mg/dl (7-20); CALCIUM 8.6 mg/dl (8.4-10.2); CARBON DIOXIDE 25 mmol/L (21-31); CHLORIDE 106 mmol/L (97-110); CREATININE 0.73 mg/dl (0.61-1.24); Estimated GFR > 60 mL/min (>60); GLUCOSE 185 mg/dl (70-220); POTASSIUM 4.3 mmol/L (3.5-5.1); SODIUM 135 mmol/L (135-144); TOTAL PROTEIN 6.3 g/dl (6.1-8.1)
[2018-12-02 06:16] LABS: ANION GAP 2 (5-13); BLOOD UREA NITROGEN 20 mg/dl (7-20); CALCIUM 8.7 mg/dl (8.4-10.2); CARBON DIOXIDE 27 mmol/L (21-31); CHLORIDE 105 mmol/L (97-110); CREATININE 0.75 mg/dl (0.61-1.24); Estimated GFR > 60 mL/min (>60); GLUCOSE 185 mg/dl (70-220); INR 1.06; PHOSPHORUS 2.8 mg/dl (2.5-4.9); POTASSIUM 4.3 mmol/L (3.5-5.1); PROTIME 13.9 Sec (11.9-14.9); PT RATIO 1.1; SODIUM 134 mmol/L (135-144)
[2018-12-02 06:17] LABS: PARTIAL THROMBOPLASTIN TIME 32.8 Sec (23.0-35.0)
[2018-12-02] MEDS: INSULIN ASPART [NOVOLOG] 3 ML PEN SC ×4 (08:13→11:40)
[2018-12-02] MEDS: INSULIN GLARGINE [LANTus] (100 UNITS/ML) SYG SC (08:38)
[2018-12-02] MEDS: RIFAXIMIN 550 MG TAB PO (08:49)
[2018-12-02] MEDS: AMLODIPINE 5 MG TAB PO (08:49)
[2018-12-02] MEDS: PROPRANOLOL 40 MG TAB PO ×2 (08:49→12:06)
[2018-12-02] MEDS: BALSAM PERU/CASTOR OIL 60 GM TUBE TOP (08:50)
== END 2018-12-02 13:54 | disposition home or self-care (01) | DRG 871 ==
LOC: ICU 16:09 → 6WM 12-01 00:23 → E/R 13:26 → 6WM 11-30 04:50
PROVIDERS: Internal Medicine
DX: A41.9 Sepsis, unspecified organism (principal); G92 Toxic encephalopathy; K72.00 Acute and subacute hepatic failure without coma; E87.2 Acidosis; C22.8 Malignant neoplasm of liver, primary, unspecified as to type; N17.9 Acute kidney failure, unspecified; E87.5 Hyperkalemia; I12.9 Hypertensive chronic kidney disease with stage 1 through stage 4 chronic kidney disease, or unspecified chronic kidney disease; E11.22 Type 2 diabetes mellitus with diabetic chronic kidney disease; N18.9 Chronic kidney disease, unspecified
CPT/HCPCS: 36415; 70450; 71045; 76700; 80048; 80053; 80061; 80307; 81001; 81003; 82043; 82140; 82962; 83036; 83605; 83735; 84100; 84145; 84155; 84300; 84436; 84443; 84479; 84484; 85025; 85610; 85730; 87040-91; 87081; 87086; 87400; 93005; 96365; 96372; 96375; 97162; 99285-25

== ENCOUNTER 2018-12-06 23:36 | Emergency (ER) | payer BC ==
[2018-12-07 03:45] LABS: ADD MAN DIFF? NO
[2018-12-07 03:53] LABS: WHITE BLOOD COUNT 9.9 10^3/ul (4.8-10.8)
[2018-12-07 03:53] LABS: ABNORMAL IP MESSAGE 1; BASOPHIL # 0.1 10^3/ul (0.0-0.1); EOSINOPHILS # 0.2 10^3/ul (0.0-0.5); HEMOGLOBIN 16.3 g/dl (14.0-18.0); LYMPHOCYTES # 2.3 10^3/ul (0.8-2.9); LYMPHOCYTES % 23.2 % (15.0-51.0); MEAN CORPUSCULAR HEMOGLOBIN 27.5 pg (29.0-33.0); MEAN CORPUSCULAR VOLUME 80.9 fl (82.0-101.0); MONOCYTE # 0.8 10^3/ul (0.3-0.9); MONOCYTES % 8.4 % (0.0-11.0); NEUTROPHIL # 6.3 10^3/ul (1.6-7.5); PLATELET COUNT 127 10^3/UL (140-415); POSITIVE DIFF @See below; RED BLOOD COUNT 5.93 10^6/ul (4.70-6.10)
[2018-12-07] MEDS: hydrALAzine 20 MG INJ IV ×2 (03:55→03:57)
[2018-12-07 04:14] LABS: INR 0.96; PROTIME 12.9 Sec (11.9-14.9)
[2018-12-07 04:15] LABS: PARTIAL THROMBOPLASTIN TIME 28.1 Sec (23.0-35.0)
== END 2018-12-07 06:15 | disposition home or self-care (01) ==
LOC: E/R 23:36
DX: I10 Essential (primary) hypertension (principal); E11.9 Type 2 diabetes mellitus without complications; R07.9 Chest pain, unspecified; Z79.4 Long term (current) use of insulin; Z85.05 Personal history of malignant neoplasm of liver
CPT/HCPCS: 36415; 70450; 71045; 82962; 85025; 85610; 85730; 93005; 99285-25